=== PATIENT | female | born 2000 | race African-American/Black ===

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

== ENCOUNTER 2021-01-03 21:13 | Emergency (ER) | payer MEDICAID ==
[2021-01-03] MEDS ORDERED: Ketorolac 30 MG/ML SDV ONE (21:21)
[2021-01-03] MEDS ORDERED: Ketorolac 30 MG/ML SDV IVPUSH ONE (21:21)
[2021-01-03 21:34] VITALS: BP 139/82; PULSE 86
--- NOTE | 2021-01-03 22:13 | EDM.PDOC ---
ED HPI GENERAL MEDICAL PROBLEM - General Chief Complaint: Chest Pain Stated Complaint: MEDICAL VIA [place] Time Seen by Provider: 01/03/21 21:21 Source of Information: Reports: Patient, EMS History Limitations: Reports: No Limitations - History of Present Illness INITIAL COMMENTS - FREE TEXT/NARRATIVE: Brannon is a 20-year-old female brought in by [facility] for evaluation of acute onset of crushing central chest pain. Patient was in her usual state of health when she had the sudden onset associated with shortness of breath, sharp, stabbing pain and nausea. The pain did radiate down the left arm. EMS did a twelve-lead on the scene and did not see any significant EKG changes but despite that gave her for aspirin to chew and one dose of nitroglycerin. She had no response to that so they gave her 50 micrograms of fentanyl IV. This too did not change her symptoms. She arrives very anxious with some mild tachypnea. She denies any trauma. She denies any illicit drug use but she does vape nicotine. The patient reportedly used to partake in marijuana use. Chest Pain Score (Numeric/FACES): 8 - Related Data Allergies Allergy/AdvReac Type Severity Reaction Status Date / Time No Known Allergies Allergy Verified 01/03/21 21:34 Home Meds: Home Meds Sertraline [Zoloft] 50 mg PO DAILY #30 tab 01/03/21 [Rx] Past Medical History - Past Health History Medical/Surgical History: Denies Medical/Surgical History HEENT History: Reports: Allergic Rhinitis, Sinusitis, Other (See Below) Other HEENT History: c/o sore throat Gastrointestinal History: Reports: Pancreatitis Other Gastrointestinal History: ulcerative colitis. pancreatits. here for small bowel related to intusseption 10/2020 Genitourinary History: Reports: Pyelonephritis Neurological History: Reports: Headaches, Chronic Psychiatric History: Reports: Anxiety, Depression, Psych Hospitalization(s), Suicide Attempt Other Psychiatric History: States that she thought about harming herself last winter but never told anyone. Hematologic History: Reports: Iron Deficiency - Infectious Disease History Infectious Disease History: Reports: None - Past Surgical History Head Surgeries/Procedures: Reports: None HEENT Surgical History: Reports: None GI Surgical History: Reports: None, Colonoscopy, EGD Female Surgical History: Reports: None Neurological Surgical History: Reports: None Dermatological Surgical History: Reports: None Social & Family History - Family History Family Medical History: Unobtainable - Caffeine Use Caffeine Use: Reports: Coffee, Energy Drinks, Soda - Living Situation & Occupation Living situation: Reports: with Family Occupation: Student ED ROS GENERAL - Review of Systems Review Of Systems: See Below Constitutional: Reports: Diaphoresis HEENT: Reports: No Symptoms Respiratory: Reports: Shortness of Breath Cardiovascular: Reports: Chest Pain (Crushing central chest pain radiating to the left arm) Endocrine: Reports: No Symptoms GI/Abdominal: Reports: No Symptoms : Reports: No Symptoms Musculoskeletal: Reports: Arm Pain (Left arm pain) Skin: Reports: No Symptoms Neurological: Reports: No Symptoms Psychiatric: Reports: Anxiety Hematologic/Lymphatic: Reports: No Symptoms Immunologic: Reports: No Symptoms ED EXAM, GENERAL - Physical Exam Exam: See Below Exam Limited By: No Limitations General Appearance: Alert, Anxious, Moderate Distress Eye Exam: Bilateral Eye: EOMI, PERRL Throat/Mouth: Normal Oropharynx, Normal Voice, No Airway Compromise Head: Atraumatic, Normocephalic Neck: Normal Inspection, Supple. No: Lymphadenopathy (R), Lymphadenopathy (L) Respiratory/Chest: Lungs Clear, Normal Breath Sounds, Splinting (Splinted respirations), Other (Tenderness to palpation over the costochondral joints and sternum bilaterally reproducing her pain symptoms.) Cardiovascular: Normal Peripheral Pulses, Regular Rate, Rhythm, No Murmur Peripheral Pulses: 2+: Radial (L), Radial (R) GI/Abdominal: Normal Bowel Sounds, Soft, Non-Tender Extremities: Normal Inspection Neurological: Alert, Oriented, Normal Cognition, No Motor/Sensory Deficits Psychiatric: Anxious Skin Exam: Warm, Dry #1 Interpretation EKG Date: 01/03/21 Time: 21:58 Rhythm: NSR (Sinus bradycardia) Rate (Beats/Min): 52 [place]: Normal P-Wave: Present QRS: Normal ST-T: Elevated (Mild [address] elevation in leads I to in V5 and V6.) QT: Normal Comparison: NA - No Prior EKG Course - Vital Signs Last Recorded V/S: Last Vital Signs Temp 36.3 C 01/03/21 21:32 Pulse 86 01/03/21 21:32 Resp 14 01/03/21 21:32 BP 139/82 01/03/21 21:32 Pulse Ox 98 01/03/21 21:32 - Orders/Labs/Meds Orders: Active Orders 24 hr Category Date Time Status Chest 2V [CR] Stat Exams 01/03/21 21:22 Taken EKG 12 Lead [EK] Routine Ther 01/03/21 21:26 Ordered Labs: Laboratory Tests 01/03/21 01/03/21 01/03/21 Range/Units 21:22 21:28 21:28 WBC 8.5 (4.5-11.0) K/uL RBC 4.36 (3.30-5.50) M/uL Hgb 13.2 (12.0-15.0) g/dL Hct 38.7 (36.0-48.0) % MCV 89 (80-98) fL MCH 30 (27-31) pg MCHC 34 (32-36) % Plt Count 353 (150-400) K/uL Neut % (Auto) 49.9 (36-66) % Lymph % (Auto) 39.9 (24-44) % Cross % (Auto) 8.4 H (2-6) % Eos % (Auto) 1.2 L (2-4) % Baso % (Auto) 0.6 (0-1) % D-Dimer, Quantitative 271.12 (0.0-500.0) ng/mL Sodium 138 L (140-148) mmol/L Potassium 4.0 (3.6-5.2) mmol/L Chloride 103 (100-108) mmol/L Carbon Dioxide 26 (21-32) mmol/L Anion Gap 13.0 (5.0-14.0) mmol/L BUN 11 (7-18) mg/dL Creatinine 0.9 (0.6-1.0) mg/dL Est Cr Clr Drug Dosing 93.59 mL/min Estimated GFR (MDRD) > 60 (>60) Glucose 92 (74-106) mg/dL Calcium 9.3 (8.5-10.1) mg/dL Total Bilirubin 1.1 H D (0.2-1.0) mg/dL AST 13 L (15-37) U/L ALT 15 (12-78) U/L Alkaline Phosphatase 79 (46-116) U/L Troponin I < 0.017 (0.000-0.056) ng/mL C-Reactive Protein < 0.05 (0.0-0.3) mg/dL Total Protein 7.3 (6.4-8.2) g/dL Albumin 3.8 (3.4-5.0) g/dL Globulin 3.5 (2.3-3.5) g/dL Albumin/Globulin Ratio 1.1 L (1.2-2.2) Lipase (73-393) U/L SARS CoV-2 RNA Rapid MOOSE 01/03/21 01/03/21 Range/Units 21:28 22:08 WBC (4.5-11.0) K/uL RBC (3.30-5.50) M/uL Hgb (12.0-15.0) g/dL Hct (36.0-48.0) % MCV (80-98) fL MCH (27-31) pg MCHC (32-36) % Plt Count (150-400) K/uL Neut % (Auto) (36-66) % Lymph % (Auto) (24-44) % Cross % (Auto) (2-6) % Eos % (Auto) (2-4) % Baso % (Auto) (0-1) % D-Dimer, Quantitative (0.0-500.0) ng/mL Sodium (140-148) mmol/L Potassium (3.6-5.2) mmol/L Chloride (100-108) mmol/L Carbon Dioxide (21-32) mmol/L Anion Gap (5.0-14.0) mmol/L BUN (7-18) mg/dL Creatinine (0.6-1.0) mg/dL Est Cr Clr Drug Dosing mL/min Estimated GFR (MDRD) (>60) Glucose (74-106) mg/dL Calcium (8.5-10.1) mg/dL Total Bilirubin (0.2-1.0) mg/dL AST (15-37) U/L ALT (12-78) U/L Alkaline Phosphatase (46-116) U/L Troponin I (0.000-0.056) ng/mL C-Reactive Protein (0.0-0.3) mg/dL Total Protein (6.4-8.2) g/dL Albumin (3.4-5.0) g/dL Globulin (2.3-3.5) g/dL Albumin/Globulin Ratio (1.2-2.2) Lipase 56 L (73-393) U/L SARS CoV-2 RNA Rapid MOOSE Negative Meds: Medications Discontinued Medications Generic Name Dose Route Start Last Admin Trade Name Marika PRN Reason Stop Dose Admin Al Hydroxide/Mg Hydroxide 15 0 ml 01/03/21 22:26 01/03/21 22:35 ml/ Lidocaine HCl 15 ml PO 01/03/21 22:27 30 ml ONETIME ONE Administration Ketorolac Tromethamine 30 mg 01/03/21 21:21 01/03/21 21:27 Ketorolac 30 Mg/Ml Sdv IVPUSH 01/03/21 21:22 30 mg ONETIME ONE Administration Ketorolac Tromethamine Confirm 01/03/21 21:21 Ketorolac 30 Mg/Ml Sdv Administered 01/03/21 21:22 Dose 30 mg .ROUTE .STK-MED ONE Lorazepam 1 mg 01/03/21 22:26 01/03/21 22:35 Lorazepam 1 Mg Tab PO 01/03/21 22:27 1 mg ONETIME ONE Administration - Radiology Interpretation Free Text/Narrative:: I reviewed the 2 view chest x-ray images. There is no acute abnormalities. Normal cardiac silhouette. No infiltrates or perihilar adenopathy. - Re-Assessments/Exams Free Text/Narrative Re-Assessment/Exam: 01/03/21 22:28 I reviewed the patient's labs showing a normal CBC, comprehensive metabolic profile with the exception of a total bilirubin of 1.1 with normal AST and ALT. D-dimer is normal at 271. C-reactive protein is negative at less than 0.05. Troponin is negative at less than 0.017. EKG is showing sinus bradycardia at a rate of 52 bpm. There is no abnormality seen. We will give the patient GI cocktail as well as lorazepam 1 mg p.o. to see if this is either esophageal spasm or anxiety. Certainly there does not appear to be anything c ardiac care. I will discussed the risks of vaping and its effects on the lung with the patient. Does not appear that she had much relief from receiving Toradol 30 mg IV when she arrived. Examination shows some tenderness at the costochondral junctions suggesting that her pain may be more musculoskeletal in nature. This would also account for the splinting in her respirations. 01/03/21 22:32 patient is negative for COVID-19. 01/03/21 22:44 bases negative at 56. The patient was given a GI cocktail and lorazepam 1 mg p.o. Departure - Departure Time of Disposition: 22:50 Disposition: Home, Self-Care 01 Clinical Impression: Anxiety attack, Acute costochondritis Instructions: Costochondritis, [id number], Managing Anxiety, Adult Referrals: PCP,Unknown [Primary Care Provider] - Forms: ED Department Discharge Care Plan Goals: Your work-up today has not shown any significant abnormalities with your heart, chest, or lungs. I do think that you have a mild inflammatory process between the ribs and the sternum called costochondritis. I do think that the sudden onset of the chest pain was more likely due to your anxiety. I would strongly encourage you to discontinue the use of vaping as it will cause damage to your lungs leading to lifelong issues. I recommend restarting your Zoloft for your anxiety which is what you are treating with the vaping and have given you a prescription for Zoloft 50 mg daily that you can fill in the morning and restart. Follow-up with [facility] as needed. Sepsis Event Note (ED) - Evaluation Sepsis Screening Result: No Definite Risk - Focused Exam Vital Signs: Vital Signs Temp Pulse Resp BP Pulse Ox 01/03/21 21:32 36.3 C 86 14 139/82 98 - Problem List & Annotations (1) Acute costochondritis SNOMED Code(s): 27159038, 68924895 Code(s): M94.0 - CHONDROCOSTAL JUNCTION SYNDROME [TIETZE] Status: Acute Priority: High Current Visit: Yes (2) Anxiety attack SNOMED Code(s): 249512609 Code(s): F41.0 - PANIC DISORDER [EPISODIC PAROXYSMAL ANXIETY] Status: Acute Priority: High Current Visit: Yes - Problem List Review Problem List Initiated/Reviewed/Updated: Yes - My Orders Last 24 Hours: My Active Orders 01/03/21 21:22 Chest 2V [CR] Stat 01/03/21 21:26 EKG 12 Lead [EK] Routine - Assessment/Plan Last 24 Hours: My Active Orders 01/03/21 21:22 Chest 2V [CR] Stat 01/03/21 21:26 EKG 12 Lead [EK] Routine
[2021-01-03] MEDS ORDERED: LORazepam 1 MG Tab PO ONE (22:26)
[2021-01-03] MEDS ORDERED: Alum Hydrox/Mag Hydrox/Simeth 15 ML, Lidocaine 2% 15 ML PO ONE ×2 (22:26)
--- NOTE | 2021-01-04 11:30 | CR ---
CHEST: 2 view CLINICAL HISTORY:Chest pain COMPARISON:2016 FINDINGS: The heart size, pulmonary vascularity and hilar structures are normal. No infiltrate effusion or pneumothorax is seen. IMPRESSION: No acute cardiopulmonary process.
== END 2021-01-03 23:05 | disposition home or self-care (01) ==
LOC: JP.ED 21:13
DX: M94.0 Chondrocostal junction syndrome [Tietze] (principal); F41.9 Anxiety disorder, unspecified; Z20.822 Contact with and (suspected) exposure to COVID-19
CPT/HCPCS: 36415; 71046; 80053; 83690; 84484; 85025; 85379; 86140; 87635; 93005; 96374; 99285; A9270; J1885; U0002

== ENCOUNTER 2021-08-23 18:33 | Emergency (ER) | payer MEDICAID ==
[2021-08-23 19:08] VITALS: BP 128/85; PULSE 106
== END 2021-08-23 20:07 | disposition home or self-care (01) ==
LOC: JP.ED 18:33
DX: K04.7 Periapical abscess without sinus (principal); F17.210 Nicotine dependence, cigarettes, uncomplicated
CPT/HCPCS: 99282; 99283